=== PATIENT | female | born 1945 | race Caucasian/White ===

== ENCOUNTER 2021-11-21 19:39 | Emergency (ER) | payer OTHER, MEDICARE ==
[~2021-11-21] VITALS: Ht 175.3 cm; Wt 99.8 kg
[2021-11-21] MEDS ORDERED: ALPR.25 PO (21:49)
[2021-11-21] MEDS ORDERED: ATOR10 PO (21:49)
[2021-11-21] MEDS ORDERED: NEBIVOLOL HCL20 MG PO (21:50)
[2021-11-21] MEDS ORDERED: BUPROPION XL450 MG PO (21:50)
[2021-11-21] MEDS ORDERED: BUSP5 PO (21:52)
[2021-11-21] MEDS ORDERED: OXYB5ER PO (21:52)
[2021-11-21] MEDS ORDERED: METERG.2 PO (21:53)
== END 2021-11-21 22:18 | disposition home or self-care (01) ==
LOC: ER 19:39
DX: M79.89 Other specified soft tissue disorders (principal); Z88.0 Allergy status to penicillin; Z88.2 Allergy status to sulfonamides; Z79.899 Other long term (current) drug therapy; E11.40 Type 2 diabetes mellitus with diabetic neuropathy, unspecified
CPT/HCPCS: 93971